=== PATIENT | female | born 1985 | race Caucasian/White ===

== ENCOUNTER 2018-04-24 12:54 | Emergency (ER) | payer OTHER ==
[~2018-04-24] VITALS: Ht 157.5 cm; Wt 70.3 kg
== END 2018-04-24 20:35 | disposition home or self-care (01) ==
LOC: ER 12:54
DX: O21.0 Mild hyperemesis gravidarum (principal); Z34.81 Encounter for supervision of other normal pregnancy, first trimester

== ENCOUNTER 2018-10-01 19:51 | Outpatient (CLI) | payer OTHER ==
[2018-10-01] MEDS ORDERED: PRENATAL TABLE1 EAC4 PO (20:54)
[2018-10-01] MEDS ORDERED: IRON325 MG PO (20:55)
== END 2018-10-02 01:54 | disposition home or self-care (01) ==
LOC: OBS/DEL 19:51
DX: O23.43 Unspecified infection of urinary tract in pregnancy, third trimester (principal); Z34.83 Encounter for supervision of other normal pregnancy, third trimester

== ENCOUNTER 2018-10-29 09:11 | Outpatient (CLI) | payer OTHER ==
[~2018-10-29 09:11] MED LIST: IRON325 MG PO; PRENATAL TABLE1 EAC4 PO
== END 2018-10-30 17:23 | disposition home or self-care (01) ==
LOC: OBS/DEL 09:11
DX: O35.8XX0 Maternal care for other (suspected) fetal abnormality and damage, not applicable or unspecified (principal); Z34.83 Encounter for supervision of other normal pregnancy, third trimester

== ENCOUNTER 2018-11-07 07:57 | Inpatient (IN) | payer OTHER ==
[~2018-11-07] VITALS: Ht 149.9 cm; Wt 79.8 kg
== END 2018-11-09 14:55 | disposition home or self-care (01) | DRG 807 ==
LOC: LDR 07:57 → OB/GYN 07:57 → LDR 09:28 → O/R 14:45 → OB/GYN 11-08 08:03
PROVIDERS: ADMIT Specialist
PROC: 10E0XZZ Delivery of Products of Conception, External Approach (ICD-10-PCS; principal; 2018-11-07)
PROC: 4A1HXCZ Monitoring of Products of Conception, Cardiac Rate, External Approach (ICD-10-PCS; 2018-11-07)
PROC: 3E033VJ Introduction of Other Hormone into Peripheral Vein, Percutaneous Approach (ICD-10-PCS; 2018-11-07)
PROC: 4A033R1 Measurement of Arterial Saturation, Peripheral, Percutaneous Approach (ICD-10-PCS; 2018-11-07)
DX: O80 Encounter for full-term uncomplicated delivery (principal); Z37.0 Single live birth; Z3A.37 37 weeks gestation of pregnancy

== ENCOUNTER → 2021-02-17 | Emergency (ER) | payer OTHER ==
[~2021-02-17] VITALS: Ht 149.9 cm; Wt 68.0 kg
== END | disposition home or self-care (01) ==
LOC: ER 15:18
DX: O21.0 Mild hyperemesis gravidarum (principal); Z3A.01 Less than 8 weeks gestation of pregnancy